=== PATIENT | female | born 1980 | race Caucasian/White ===

== ENCOUNTER 2024-10-03 05:24 | Emergency (ER) | payer MEDICAID ==
[~2024-10-03] VITALS: Ht 165.1 cm; Wt 82.0 kg
[2024-10-03 05:29] VITALS: O2SAT 98
[2024-10-03 06:34] LABS: BASOPHILS % 0.3 % (0.0-2.0); EOSINOPHILS % 0.9 % (0.0-5.0); HEMATOCRIT. 39.2 % (36.0-48.0); HEMOGLOBIN. 13.2 g/dL (12.0-16.0); LYMPHOCYTES % 25.5 % (20.0-50.0); MEAN PLATELET VOLUME 8.6 fl (7.4-10.4); MONOCYTES % 6.1 % (2.0-8.0); NEUTROPHILS % 67.2 % (40.0-76.0); PLATELET 247 x1000/uL (130-400); RED BLOOD CELL COUNT 3.97 mill/uL (4.2-5.4); RED CELL DISTRIBUTION WIDTH 13.6 % (11.6-14.6)
[2024-10-03 06:52] LABS: CREATININE 0.7 mg/dL (0.6-1.0)
[2024-10-03 06:53] LABS: UREA NITROGEN BLOOD 10 mg/dL (9-23)
[2024-10-03 07:08] LABS: HCG SCREEN NEGATIVE
[2024-10-03] MEDS ORDERED: LIDOCAINE HCL 1% 20ML VIAL INFIL ONE (08:15)
[2024-10-03] MEDS ORDERED: TOPUD PO (09:06)
[2024-10-03] MEDS ORDERED: BO1 TP (09:06)
[2024-10-03] MEDS: ONDANSETRON HCL 4MG TABLET PO ONE (10:10)
[2024-10-03 10:34] VITALS: BP 115/95; PULSE 84; RESP 18; TEMP 36.9; O2SAT 98
== END 2024-10-03 10:40 | disposition home or self-care (01) ==
LOC: ER 05:24
DX: S01.21XA Laceration without foreign body of nose, initial encounter (principal); S80.212A Abrasion, left knee, initial encounter; F10.90 Alcohol use, unspecified, uncomplicated; Z79.899 Other long term (current) drug therapy; X58.XXXA Exposure to other specified factors, initial encounter; Y93.89 Activity, other specified; Y92.89 Other specified places as the place of occurrence of the external cause; Y99.8 Other external cause status; Y90.9 Presence of alcohol in blood, level not specified
CPT/HCPCS: 80048; 84703; 85025; 36415; 93880; 73060; 73090; 73130; 70450; 70486; 72125; 74176; 76705; 12011; 99284; Q0162; J2003; Z7610 ×3; A4565; A4606

== ENCOUNTER 2024-10-15 20:41 | Emergency (ER) | payer MEDICAID, OTHER ==
[~2024-10-15] VITALS: Ht 157.5 cm; Wt 74.0 kg
[~2024-10-15 20:41] MED LIST: BO1 TP; TOPUD PO
[2024-10-15 20:49] VITALS: TEMP 36.9; O2SAT 100
[2024-10-15 23:59] LABS: CLARITY URINE CLEAR (CLEAR); COLOR URINE YELLOW (YELLOW); GLUCOSE URINE NEGATIVE (NEGATIVE); KETONES URINE TRACE (NEGATIVE); LEUKOCYTE ESTERASE URINE 1+ (NEGATIVE); NITRITE URINE NEGATIVE (NEGATIVE); OCCULT BLOOD URINE NEGATIVE (NEGATIVE); PH URINE 5.5 (4.5-8.0); PROTEIN URINE NEGATIVE (NEGATIVE); SPECIFIC GRAVITY URINE 1.018 (1.005-1.030); UROBILINOGEN URINE 0.2 E.U./dL (0.2-1.0)
[2024-10-16] MEDS ORDERED: LIDO-53 TP (01:01)
[2024-10-16] MEDS ORDERED: NAPR-1176 MT (01:01)
[2024-10-16 01:31] LABS: RBC URINE 0-2 /hpf (0-2); SQUAMOUS EPITHELIAL CELL URINE 1+ /lpf (RARE/1+)
[2024-10-16 01:33] LABS: BACTERIA URINE 1+
[2024-10-16 01:58] VITALS: BP 142/101; PULSE 74; RESP 14; O2SAT 99
== END 2024-10-16 01:58 | disposition home or self-care (01) ==
LOC: ER 20:41
DX: M79.621 Pain in right upper arm (principal); Z98.890 Other specified postprocedural states
CPT/HCPCS: 73060; 81003; 99284